=== PATIENT | female | born 1985 | race Asian ===

== ENCOUNTER → 2016-09-15 | Outpatient (CLI) | payer BC ==
[~2016-09-15] MED LIST: PRENTAB26 PO
[2016-09-15 16:16] LABS: URINE APPEARANCE CLEAR (CLEAR); URINE BILIRUBIN NEG (NEG); URINE COLOR DK YELLOW; URINE NITRITE NEG (NEG); URINE SPECIFIC GRAVITY 1.023 (1.000-1.030); UROBILINOGEN NEG (NEG)
[2016-09-15 16:19] LABS: MANUAL MICROSCOPIC REQUIRED? NO; REVIEW REQ? NO
== END | disposition home or self-care (01) ==
LOC: C.LABSPEC 16:06
PROVIDERS: ATTEND Obstetrics & Gynecology
DX: Z34.00 Encounter for supervision of normal first pregnancy, unspecified trimester (principal)

== ENCOUNTER → 2016-09-22 | Outpatient (CLI) | payer BC ==
[2016-09-22 13:22] LABS: BASO % 0.2 %; BASO ABS # 0.02 K/uL (0-0.2); COMPLETE YES; EOS % 0.6 %; IG% 0.2 %; LYMPH % 17.3 %; LYMPH ABS # 1.91 K/uL (1.2-3.4); MEAN CELL VOLUME 88.3 fL (80-100); MEAN CORPUSCULAR HEMOGLOBIN 31.1 pg (25-34); MEAN CORPUSCULAR HGB CONC 35.3 g/dl (32-36); MEAN PLATELET VOLUME 11.1 fL (7.4-10.4); NEUT % 77.7 %; PLATELET COUNT 211 K/uL (130-400); RED BLOOD COUNT 4.53 M/uL (4.2-5.4); WHITE BLOOD COUNT 11.01 K/uL (4.8-10.8)
[2016-09-25 14:03] LABS: CHLAMYDIA TRACH RNA*** NOT DETECTED (NOT DETECTED); GC (NEIS GONORRHOEAE)RNA** NOT DETECTED (NOT DETECTED)
== END | disposition home or self-care (01) ==
LOC: C.LAB1850 12:24
PROVIDERS: ATTEND Obstetrics & Gynecology
DX: Z34.01 Encounter for supervision of normal first pregnancy, first trimester (principal)

== ENCOUNTER → 2016-11-17 | Outpatient (CLI) | payer BC ==
[2016-11-17 13:13] LABS: GTGD 50 Grams
[2016-11-23 09:38] LABS: AFP CONCENTRATION 48.7 NG/ML; AFP MULTIPLE OF MEDIAN 0.91; AFPTS GESTATIONAL AGE 17.7 WEEKS; AFPTS INSULIN DEP DIABETIC? NO; AFPTS MATERNAL WT 104 LBS; EDD DETERMINED BY ULTRASOUND; HISTORY OF NTD NO; REPEAT SAMPLE? NO
== END | disposition home or self-care (01) ==
LOC: C.LAB1850 10:10
PROVIDERS: ATTEND Obstetrics & Gynecology
DX: Z34.02 Encounter for supervision of normal first pregnancy, second trimester (principal)

== ENCOUNTER → 2017-02-02 | Outpatient (CLI) | payer BC ==
[2017-02-02 10:29] LABS: HEMATOCRIT 34.5 % (37-47)
[2017-02-02 11:26] LABS: GTGD 50 Grams
[2017-02-02 12:52] LABS: URINE APPEARANCE CLEAR (CLEAR); URINE BILIRUBIN NEG (NEG); URINE COLOR DK YELLOW; URINE EPITHELIAL CELL AUTO >30 /lpf (0-5); URINE NITRITE NEG (NEG); URINE SPECIFIC GRAVITY 1.024 (1.000-1.030); UROBILINOGEN NEG (NEG)
[2017-02-02 13:10] LABS: MANUAL MICROSCOPIC REQUIRED? NO; REVIEW REQ? NO
== END | disposition home or self-care (01) ==
LOC: C.LAB1850 09:36
PROVIDERS: ATTEND Obstetrics & Gynecology
DX: Z34.03 Encounter for supervision of normal first pregnancy, third trimester (principal)

== ENCOUNTER → 2017-03-28 | Outpatient (CLI) | payer BC | END | disposition home or self-care (01) | LOC: C.LABSPEC 14:26 | PROVIDERS: ATTEND Obstetrics & Gynecology | DX: Z34.03 Encounter for supervision of normal first pregnancy, third trimester (principal) ==

== ENCOUNTER 2017-04-23 14:43 | Outpatient (CLI) | payer BC ==
[~2017-04-23] VITALS: Ht 160 cm; Wt 60.0 kg
[2017-04-23 15:23] VITALS: Ht 160 cm; Wt 60.0 kg
[2017-04-23] MEDS ORDERED: PRENTAB26 PO (15:26)
== END 2017-04-23 15:15 | disposition home or self-care (01) ==
LOC: C.OPB 14:43 → C.LD 14:44 → C.OPB 15:15
PROVIDERS: ATTEND Obstetrics & Gynecology
DX: O26.893 Other specified pregnancy related conditions, third trimester (principal); N89.8 Other specified noninflammatory disorders of vagina; Z3A.40 40 weeks gestation of pregnancy

== ENCOUNTER 2017-04-26 22:25 | Outpatient (CLI) | payer BC ==
[~2017-04-26] VITALS: Ht 160 cm; Wt 60.5 kg
[2017-04-26 23:20] VITALS: Ht 160 cm; Wt 60.5 kg
--- NOTE | 2017-04-28 12:09 | EDITING REQUIRED CODING QUERY ---
DIAGNOSIS NEEDED To promote full compliance with coding requirements relating to patient care, physician participation is requested in all cases of integration assistant uncertainty. Please assist us with the question(s) below: Coding Question: The patient received care in labor and delivery on 04/26/17 as noted within the record. Please document the diagnosis that is being addressed by the medication/treatment. Provider Response: DIAGNOSIS: at 40 weeks, r/o rupture Thank you for your assistance, Isabel Marshall - Lab Courier
== END 2017-04-26 23:33 | disposition home or self-care (01) ==
LOC: C.OPB 22:25 → C.LD 22:25 → C.OPB 23:33
PROVIDERS: ATTEND Obstetrics & Gynecology
DX: Z34.03 Encounter for supervision of normal first pregnancy, third trimester (principal); Z3A.40 40 weeks gestation of pregnancy

== ENCOUNTER 2017-04-27 07:27 | Outpatient (CLI) | payer BC ==
[~2017-04-27] VITALS: Ht 160 cm; Wt 59.0 kg
[2017-04-27 09:50] VITALS: Ht 160 cm; Wt 59.0 kg
== END 2017-04-27 11:02 | disposition home or self-care (01) ==
LOC: C.LD 07:27 → C.OPB 07:27
PROVIDERS: ATTEND Obstetrics & Gynecology
DX: Z34.03 Encounter for supervision of normal first pregnancy, third trimester (principal); Z3A.40 40 weeks gestation of pregnancy

== ENCOUNTER 2017-04-28 02:55 | Inpatient (IN) | payer BC ==
[~2017-04-28] VITALS: Ht 160 cm; Wt 60.5 kg
[2017-04-28] MEDS ORDERED: LACTATED RINGER'S 1000ML 1,000 ML IV SCH (03:07)
[2017-04-28] MEDS ORDERED: LACTATED RINGER'S 1000ML 1,000 ML IV PRN (03:07)
[2017-04-28 03:19] VITALS: Ht 160 cm; Wt 60.5 kg
[2017-04-28] MEDS ORDERED: BUPIVACAINE 0.25% 30 ML VIAL ONE (03:35)
[2017-04-28] MEDS ORDERED: FENTANYL 2MCG/ML ROPIV 1.25MG/ML 100ML BAG EPI ONE (03:35)
[2017-04-28] MEDS ORDERED: EpHEDrine SULFATE INJ 50 MG/ML AMP ONE (03:35)
[2017-04-28] MEDS ORDERED: FENTANYL CITRATE INJ 50 MCG/1 ML 2 ML VIAL ONE (03:36)
[2017-04-28] MEDS ORDERED: NALOXONE HCL INJ 1 MG in SODIUM CHLORIDE 0.9% 1000ML 1,000 ML IV PRN (04:33)
[2017-04-28] MEDS ORDERED: LACTATED RINGER'S 1000ML 500 ML IV PRN (04:33)
[2017-04-28 04:34] LABS: MEAN CELL VOLUME 94.3 fL (80-100); MEAN CORPUSCULAR HEMOGLOBIN 33.3 pg (25-34); MEAN CORPUSCULAR HGB CONC 35.3 g/dl (32-36); MEAN PLATELET VOLUME 12.7 fL (7.4-10.4); PLATELET COUNT 97 K/uL (130-400); PLT ESTIMATE DECREASED; RED BLOOD COUNT 4.24 M/uL (4.2-5.4); WHITE BLOOD COUNT 12.59 K/uL (4.8-10.8)
[2017-04-28] MEDS ORDERED: EpHEDrine SULFATE INJ 50 MG/ML AMP IV PRN (04:45)
[2017-04-28] MEDS ORDERED: NALOXONE HCL INJ 0.4 MG/1 ML VIAL/CARP IV PRN (04:45)
[2017-04-28] MEDS ORDERED: NALBUPHINE HCL INJ 10 MG/ML AMP IV PRN (04:45)
[2017-04-28] MEDS ORDERED: FENTANYL 2MCG/ML ROPIV 1.25MG/ML 100ML BAG EPI PRN (04:45)
[2017-04-28] MEDS ORDERED: DiphenhydrAMINE HCL 50 MG/ML VIAL IV PRN (04:45)
[2017-04-28] MEDS ORDERED: ONDANSETRON INJ 2 MG/ML 2 ML VIAL IV PRN (04:45)
[2017-04-28] MEDS ORDERED: OXYTOCIN 30 UNITS/500ML NSS IV ONE (07:48)
[2017-04-28] MEDS ORDERED: OXYTOCIN 30 UNITS/500ML NSS IV PRN (08:00)
[2017-04-28] MEDS ORDERED: BENZOCAINE 20% AER SPR 82.5 GM CAN EXT PRN (08:00)
[2017-04-28] MEDS ORDERED: ACETAMINOPHEN/CODEINE 300/30MG TAB PO PRN ×2 (08:00)
[2017-04-28] MEDS ORDERED: ACETAMINOPHEN 325 MG TAB PO PRN (08:00)
[2017-04-28] MEDS ORDERED: SUPERCREAM 0.870 % 15GM JAR EXT PRN (08:00)
[2017-04-28] MEDS ORDERED: LANOLIN OINT EXT PRN ×2 (08:00)
--- NOTE | 2017-04-28 08:14 | DELIVERY SUMMARY ---
DATE OF OPERATION: 04/28/2017 The patient is a 31-year-old female EDC of 04/22/2017 who presented with rupture of membranes and spontaneous labor. She progressed to full dilation with effective epidural analgesia. She pushed effectively over intact perineum for delivery of a viable female infant. Mouth and nasopharynx were suctioned on the perineum. The rest of the infant delivered easily. The left arm presented prior to delivering the rest of the torso and there was vigorous crying and the was moving all four limbs on delivery. A first degree perineal laceration was repaired with 3-0 chromic in the usual fashion. Estimated blood loss was 400 cc. Bleeding was controlled with dilute Pitocin. I attest to the content of the Intraoperative Record and any orders documented therein. Any exception s are noted below.
--- NOTE | 2017-04-28 09:00 | Anesthesia Procedure Note ---
Anesthesia Epidural Removal Nt Date & Time Apr 28, 2017 at 08:59 Vital Signs Pain Intensity: 0.0 Notes Mental Status: alert / awake / arousable, participated in evaluation Nausea / Vomiting: adequately controlled Pain: adequately controlled Airway Patency, RR, SpO2: stable & adequate BP & HR: stable & adequate Hydration State: stable & adequate Neuraxial Anesthesia: was administered Anesthetic Complications: no major complications apparent, pt satisfied with anesthetic care Epidural: removed without complications, with tip intact
[2017-04-28 09:50] VITALS: BP 105/73; PULSE 109; TEMP 37.2; O2SAT 97
[2017-04-28] MEDS: IBUPROFEN 600 MG TAB PO PRN ×3 (10:25→20:08)
[2017-04-28] MEDS: PRENATAL VITAMIN TAB PO SCH (10:29)
[2017-04-28 11:55] VITALS: BP 108/75; PULSE 87; TEMP 37
[2017-04-28 15:55] VITALS: BP 107/74; PULSE 92; TEMP 36.5; O2SAT 97
--- NOTE | 2017-04-28 16:58 | Discharge Instructions ---
Discharge Instructions Date of Service Apr 28, 2017. Admission Reason for Admission: Check Rupture Discharge Discharge Diagnosis / Problem: after delivery Discharge Goals Goal(s): Routine recovery after delivery Medications Continue Dispensed Medications: supercream, dermaplast, tucks, lansinoh Activity Recommendations Activity Limitations: per Instructions/Follow-up section . Instructions / Follow-Up Instructions / Follow-Up ACTIVITY RECOMMENDATIONS: * Gradual return to full activity over the next 2-3 weeks. * No lifting - nothing heavier than baby over the next 2-3 weeks. * Do not engage in vigorous exercise, sexual activity or sports until cleared by your physician. * Do not drive or operate any motorized equipment until cleared by your physician. * You may shower/bathe daily. MEDICATIONS: For discomfort or pain, you may use Acetaminophen (Tylenol), Ibuprofen (Advil), or Naproxen (Aleve) following the package directions. For constipation you may use Colace following the package directions. BREAST CARE: If you are not breast feeding: * Wear a supportive bra 24 hours a day for one to two weeks. * Avoid stimulating your breasts and nipples as much as possible during the first few weeks after delivery. * When taking a shower, have the warm water hit your back, not breasts. * When your breasts feel full, apply ice packs. Usually three to four times a day helps ease the discomfort. * Take a mild pain medication (Tylenol / Motrin) when you are uncomfortable. If breast feeding: * Use breast milk to lubricate nipples. Lansinoh cream may be used for sore nipples. You do not need to remove cream prior to breast feeding. If using a different brand of cream, check the label for directions regarding removal of cream prior to nursing. * Wear a supportive bra. * If having problems with breasts or breast feeding, call a field sales consultant or your health care provider. EPISIOTOMY CARE: After delivery, if you have an episiotomy (stitches), the following steps will ease discomfort and aid healing. * For the first 24 hours after delivery, place ice packs next to your episiotomy to help reduce swelling. * After the first 24 hour-period, sitz baths, either portable or in the tub, are suggested. A shower with a shower arm sprayed over the episiotomy may be comforting. * Kate care should be done after each voiding and bowel movement. Squirt warm water from a plastic bottle over the perineum (region of the body between the anus and urinary opening) and pat dry. * Use Dermoplast to ease discomfort. Shake container. [place] directly over the episiotomy. Place a Tucks on a clean sanitary pad next to your episiotomy. SPECIAL CARE INSTRUCTIONS: When you are discharged from the hospital, it is important for you to follow the instructions listed below: * During the first week at home, you should be able to care for yourself and your baby. In addition, the usual light household activities are encouraged. * Limit your activities to the way you feel. Do not try to clean the house or move furniture. Be sensible. * If you actively engage in sports and have done so up until the time of your delivery, you may resume these activities as soon as you feel able. This may take up to one month or even longer. Use good judgment. * Continue to take your vitamins for at least six weeks after the of your baby. * Your diet need not be limited unless you were on a special diet before your delivery. Breast-feeding mothers need around 2500 calories per day and at least 64-80 ounces of fluid per day (8 to 10 glasses). * You should eat foods from the four major food groups. Crash diets or fad diets are to be avoided. Eating lean meats, fresh fruits and vegetables, low-fat dairy products, high fiber foods and a regular exercise program, will help you get back to your pre- weight without putting your health at risk. * Constipation is sometimes a problem after delivery. Take a mild laxative as needed. If breast feeding, Milk of Magnesia is acceptable to use. You may use a suppository or Fleets enema if no episiotomy. * A daily shower or tub bath is suggested. Be sure to thoroughly and gently dry the perineum. * A bloody vaginal discharge will usually continue until around four weeks post . A small amount of bleeding may continue for as long as six weeks. Vaginal discharge changes from the bright red bleeding after delivery to pink then brownish and finally yellowish-pink before becoming white and disappearing. * Bleeding may increase with activity. Your first period may come in 4-8 weeks. If you are breast feeding, your period may be delayed even longer. * No Name (sex) can begin whenever both you and your partner feel comfortable and do not have any form of genital infection. It is recommended that you wait at least six weeks for internal and external healing to occur. If you have questions, please talk to your health care practitioner. A condom should be used to prevent infection and . * Foreplay, gentle intercourse and lubrication is very important the first several times to prevent pain. A water-based lubricant such as K-Y jelly or Astroglide may be used. * If you have RH negative blood and your baby is RH positive, you will receive RHOGAM by injection prior to discharge. The nurse will give you a card to keep with you that has the date and place that you received RHOGAM after delivery. * During your care, you had a Rubella screen done to check for the presence of rubella antibodies in your blood. If your test was negative, you will receive a Rubella vaccine prior to discharge. This vaccine may cause a fever, soreness at the injection site and flu-like symptoms. If these symptoms persist, notify your health care practitioner. is not advised for one month after a Rubella vaccine. * Verbalizes understanding of car seat law as reviewed with patient nursing. * Car Seat hand-out given and reviewed with patient by nursing. * Shaken baby information reviewed with patient by nursing. Call you doctor if: * Heavy bleeding (saturating several pads an hour) or passing clots the size of your fist. * A fever >101 degrees F (38.3 degrees C) on two occasions four hours apart and /or chills. * Unusual pain in the pelvic or vaginal areas. * "Baby Blues" lasting longer than two weeks. If you have any questions or concerns, call your health care practitioner at . FOLLOW UP VISIT: * Please call the office at to schedule a 6 week examination. It is important you keep this appointment. It is important for you to make arrangements for either yearly or twice yearly check-ups thereafter. Current Hospital Diet Patient's current hospital diet: Regular OB Diet Discharge Diet Recommended Diet: Regular Diet Pending Studies Studies pending at discharge: no Medical Emergencies . Who to Call and When: Medical Emergencies: If at any time you feel your situation is an emergency, please call 911 immediately. . Non-Emergent Contact Non-Emergency issues call your: Pipelines Superintendent . . "Provider Documentation" section prepared by Greg Maier. . VTE Core Measure Inpt VTE Proph given/why not?: Treatment not indicated
[2017-04-28 20:00] VITALS: BP 100/66; PULSE 87; TEMP 36.9; O2SAT 97
[2017-04-28] MEDS: DOCUSATE SODIUM 100 MG CAP PO SCH (20:08)
[2017-04-28 23:30] VITALS: BP 102/67; PULSE 86; TEMP 36.9; O2SAT 97
[2017-04-29] MEDS: IBUPROFEN 600 MG TAB PO PRN ×2 (02:15→16:55)
[2017-04-29 03:35] VITALS: BP 109/74; PULSE 83; TEMP 36.5; O2SAT 98
--- NOTE | 2017-04-29 05:54 | OB/GYN Progress Note ---
BEARING MAKER Progress Note Date of Service Apr 29, 2017. Subjective conversation w/ patient, physical exam, chart review, lab review Ambulation: ambulating normally Voiding: no voiding problems Diet Tolerance: Regular Diet Lochia: Small Feeding Type: Breast Feeding Pain: moderate pain Review of Systems Constitutional: No fever Respiratory: No shortness of breath Cardiac: No chest pain Abdomen: No nausea, No vomiting Female : No dysuria Objective Vital Signs Date Time Temp Pulse Resp B/P (MAP) Pulse Ox O2 Delivery O2 Flow Rate FiO2 04/29/17 03:35 36.5 83 18 109/74 (86) 98 Room Air 04/28/17 23:30 97 Room Air 04/28/17 23:30 36.9 86 16 102/67 (79) 97 Room Air 04/28/17 20:00 36.9 87 16 100/66 (77) 97 Room Air 04/28/17 15:55 97 Room Air 04/28/17 15:55 36.5 92 18 107/74 (85) 97 Room Air 04/28/17 11:55 37.0 87 18 108/75 (86) Room Air 04/28/17 09:50 97 Room Air 04/28/17 09:50 37.2 109 18 105/73 (84) 97 Room Air Physical Exam General Appearance: WELL-APPEARING Respiratory/Chest: lungs clear, normal breath sounds, no respiratory distress Cardiovascular: regular rate, rhythm Abdomen: normal bowel sounds, non tender, soft Fundus: Firm, Relation to Umbilicus (3 below U) Extremities: non-tender, no pedal edema Laboratory Results Last 24 Hours Test 04/29/17 04:44 Medications Current Inpatient Medications Medications (Trade) Dose Ordered Sig/Braxton Route Start Time Stop Time Status Last Admin Dose Admin Lactated Ringer's 1,000 ml @ 125 mls/hr Q8H IV 04/28/17 03:07 04/30/17 03:06 04/28/17 03:07 125 MLS/HR Lactated Ringer's 1,000 ml @ 999 mls/hr Q1H1M PRN IV 04/28/17 03:07 05/28/17 03:06 Oxytocin (Pitocin IV) 30 units UD PRN IV 04/28/17 08:00 05/28/17 07:59 04/28/17 08:15 30 UNITS Benzocaine (Dermoplast Aero Spr) 1 appln PRN PRN EXT 04/28/17 08:00 05/28/17 07:59 Cocaine HCl (Supercream 0.870% Cr) BID PRN EXT 04/28/17 08:00 05/12/17 07:59 Lanolin (Lanolin Oint) PRN PRN EXT 04/28/17 08:00 05/28/17 07:59 Prenat Multivit/ Shank Stapler/Iron/Folic Ac ( Vitamin Tab) 1 tab DAILY PO 04/28/17 08:30 05/28/17 08:29 04/28/17 10:29 1 TAB Ibuprofen (Motrin Tab) 600 mg Q4H PRN PO 04/28/17 08:00 05/28/17 07:59 04/29/17 02:15 600 MG Acetaminophen (Tylenol Tab) 650 mg Q6H PRN PO 04/28/17 08:00 05/28/17 07:59 Acetaminophen/ Codeine Phosphate (Tylenol w/ Codeine #3 Tab) 1 tab Q4H PRN PO 04/28/17 08:00 05/28/17 07:59 Acetaminophen/ Codeine Phosphate (Tylenol w/ Codeine #3 Tab) 2 tab Q4H PRN PO 04/28/17 08:00 05/28/17 07:59 Bisacodyl (Dulcolax Tab) 5 mg 20 PO 04/29/17 20:00 04/29/17 20:01 Docusate Sodium (coLACE CAP) 100 mg BID PO 04/28/17 20:00 05/28/17 19:59 04/28/17 20:08 100 MG Assessment and Plan Post- Day Number: 1 Continue Routine Care: A/P: This is a 31 y/o female, , PPD#1 s/p normal vaginal delivery. She is ambulating and clinically stable. Plan: - Vitals signs are reviewed and WNL (Tmax 37.2) - Last Hgb is 14.1 (04/28). This AM pending - Blood type O+, GBS neg, Rubella Immune - Routine care - Encourage ambulation, monitor and control pain with medication as needed, continue with regular diet as tolerated and monitor lochia - Stool softeners and sitz bath recommended - Encourage breast feeding and educate about breast feeding Resident Physician Supervision Note: I was present with Dr. Maier during the history and exam. I discussed the case with the resident and agree with the findings and plan as documented in the note. Any exceptions or clarifications are listed here: pt doing well. plts were checked this am due to 97 on admission but normal this am. hgb as expected. routine care. Documented By: Brittani Arzate Resident Involvement: Resident Care Provided Care Provided: OB Delivery
[2017-04-29 07:03] LABS: HEMATOCRIT 34.7 % (37-47); MEAN CELL VOLUME 96.4 fL (80-100); MEAN CORPUSCULAR HEMOGLOBIN 31.4 pg (25-34); MEAN CORPUSCULAR HGB CONC 32.6 g/dl (32-36); MEAN PLATELET VOLUME 12.3 fL (7.4-10.4); PLATELET COUNT 129 K/uL (130-400); WHITE BLOOD COUNT 12.73 K/uL (4.8-10.8)
[2017-04-29 07:45] VITALS: BP 99/64; PULSE 76; TEMP 36.5
[2017-04-29 08:53] LABS: PLT ESTIMATE NORMAL
[2017-04-29] MEDS: DOCUSATE SODIUM 100 MG CAP PO SCH (11:55)
[2017-04-29] MEDS: PRENATAL VITAMIN TAB PO SCH (11:55)
[2017-04-29 15:30] VITALS: BP 109/76; PULSE 90; TEMP 37
[2017-04-29 18:01] VITALS: BP_DIAS 76; PULSE 90; TEMP 37
[2017-04-29] MEDS ORDERED: BISACODYL 5 MG TABEC PO SCH (20:00)
== END 2017-04-29 18:45 | disposition home or self-care (01) | DRG 775 ==
LOC: C.OPB 02:55 → C.LD 02:58 → C.OPB 03:08 → C.OBG 09:47
PROVIDERS: ADMIT Obstetrics & Gynecology; ATTEND Obstetrics & Gynecology
PROC: 10E0XZZ Delivery of Products of Conception, External Approach (ICD-10-PCS; principal; 2017-04-28)
PROC: 0HQ9XZZ Repair Perineum Skin, External Approach (ICD-10-PCS; principal; 2017-04-28)
DX: O70.0 First degree perineal laceration during delivery (principal); Z37.0 Single live birth; Z3A.40 40 weeks gestation of pregnancy

== ENCOUNTER → 2017-06-15 | Outpatient (CLI) | payer BC | END | disposition home or self-care (01) | LOC: C.PAPS 14:52 | PROVIDERS: ATTEND Obstetrics & Gynecology | DX: Z12.4 Encounter for screening for malignant neoplasm of cervix (principal) ==